=== PATIENT | male | born 1940 | race Two or more races ===

== ENCOUNTER 2023-08-03 21:14 | Emergency (ER) | payer OTHER ==
[~2023-08-03] VITALS: Ht 162.6 cm; Wt 74.8 kg
[2023-08-03 21:46] VITALS: BP 152/61; RESP 16; TEMP 97.6; O2SAT 95
[2023-08-03 21:59] VITALS: PULSE 60
[2023-08-04] MEDS: ACETAMINOPHEN 325 MG TAB PO ONE (03:30)
[2023-08-04] MEDS: NEOMYCIN-BACITRACIN-POLYM UNITDOSE PKG TOP OINT TOP ONE (03:30)
[2023-08-04] MEDS: TETANUS-DIPTH-ACEL PERTUSSIS 0.5ML SYR Tdap IM ONE (03:30)
[2023-08-04] MEDS ORDERED: MUPI2OIN2 EX (03:31)
[2023-08-04] MEDS ORDERED: CEPH500C PO (03:31)
== END 2023-08-04 04:05 | disposition home or self-care (01) ==
LOC: ER 21:14
DX: S01.01XA Laceration without foreign body of scalp, initial encounter (principal); Z79.899 Other long term (current) drug therapy; W18.39XA Other fall on same level, initial encounter; Y93.89 Activity, other specified; Y92.89 Other specified places as the place of occurrence of the external cause; Y99.8 Other external cause status
CPT/HCPCS: 12002; 70450; 93005

== ENCOUNTER 2024-02-06 11:03 | Emergency (ER) | payer OTHER ==
[~2024-02-06] VITALS: Ht 165.1 cm; Wt 76.0 kg
[~2024-02-06 11:03] MED LIST: CEPH500C PO; MUPI2OIN2 EX
--- NOTE | 2024-02-06 11:16 | ED.PDOC ---
SOB-HPI HPI Comments 83Y M with PMHx DM, HTN, COPD, and CAD s/p stenting presents to ED via EMS for chief complaint cough x5days. Pt states he is producing dark colored phlegm when coughing. Pt denies chest pain and edema. Chief Complaint: Shortness of Breath Time Seen by MD: 11:05 Reviewed notes: Nurses Notes, F[employer] Notes, Medications, Allergies Information Source: Patient, Emergency Med Personnel Mode of Arrival: EMS Brought in by: EMS Severity: Mild Timing: Days Duration: Since onset Context: At Rest PE Risk Factors: None History of: COPD Prehospital treatment: None Modifying Factors: Nothing Associated Signs and Symptoms: Cough If cough with SOB: Productive Past Medical History PAST MEDICAL HISTORY: CAD, COPD, DM, HTN, Denies Surgical History: PTCA Family History Family History: Unknown Social History Smoker: Non-Smoker, Quit Greater Than 1 Year Alcohol: Denies ETOH Use Drugs: Denies Drug Use Lives In: Home Constitutional: denies: chills, diaphoresis, fatigue, fever, malaise, sweats, weakness, others EENTM: denies: blurred vision, double vision, ear bleeding, ear discharge, ear drainage, ear pain, ear ringing, eye pain, eye redness, hearing loss, mouth pain, mouth swelling, nasal discharge, nose bleeding, nose congestion, nose pain, photophobia, tearing, throat pain, throat swelling, voice changes, others Respiratory: reports: cough; denies: hemoptysis, orthopnea, SOB at rest, shortness of breath, SOB with excertion, stridor, wheezing, others Cardiovascular: denies: chest pain, dizzy spells, diaphoresis, Dyspnea on exertion, edema, irregular heart beat, left arm pain, lightheadedness, palpitations, PND, syncope, others Gastrointestinal: denies: abdomen distended, abdominal pain, blood streaked bowels, constipated, diarrhea, dysphagia, difficulty swallowing, hematemesis, melena, nausea, poor appetite, poor fluid intake, rectal bleeding, rectal pain, vomiting, others Genitourinary: denies: burning, dysuria, flank pain, frequency, hematuria, incontinence, penile discharge, penile sore, pain, testicle pain, testicle swelling, urgency, others Neurological: denies: dizziness, fainting, headache, left sided numbness, left sided weakness, numbness, paresthesia, pre-existing deficit, right sided numbness, right sided weakness, seizure, speech problems, tingling, tremors, weakness, others Musculoskeletal: denies: back pain, gout, joint pain, joint swelling, muscle pain, muscle stiffness, neck pain, others Integumetry: denies: bruises, change in color, change in hair/nails, dryness, laceration, lesions, lumps, rash, wounds, others Allergic/Immunocompromised: denies: Difficulty Healing, Frequent Infections, Hives, Itching, others Hematologic/Lymphatic: denies: anemia, blood clots, easy bleeding, easy bruising, swollen glands, others Endocrine: denies: excessive hunger, excessive sweating, excessive thirst, excessive urination, flushing, intolerance to cold, intolerance to heat, unexplained weight gain, unexplained weight loss, others Psychiatric: denies: anxiety, bipolar disorder, depression, hopeless, panic disorder, schizophrenia, sleepless, suicidal, others All Other Systems: Reviewed and Negative Physical Exam General Appearance: Moderate Distress, Normal HEENT: Normal ENT Inspection, Pharynx Normal, TMs Normal Neck: Full Range of Motion, Non-Tender, Normal, Normal Inspection Respiratory: Chest Non-Tender, No Accessory Muscle Use, No Respiratory Distress, Other (Coarse breath sounds) Cardiovascular: No Edema, No JVD, No Murmur, No Gallop, Normal Peripheral Pulses, Regular Rate/Rhythm Breast Exam: Deferred Gastrointestinal: No Organomegaly, Non Tender, No Pulsatile Mass, Normal Bowel Sounds, Soft Genitalia: Deferred Pelvic: Deferred Rectal: Deferred Extremities: No calf tenderness, Normal capillary refill, Normal inspection, Normal range of motion, Non-tender, No pedal edema Musculoskeletal : Apperance: Normal Neurologic: Alert, caddy II-XII nml as Tested, No Motor Deficits, Normal Affect, Normal Mood, No Sensory Deficits Cerebellar Function: NOT DONE Reflexes: NOT DONE Skin: Dry, Normal Color, Warm Peripheral Pulses: 3+ Radial (R), 3+ Radial (L) Lymphatic: No Adenopathy Was a procedure done? Was a procedure done?: No Differential Dx Differential Diagnosis: Anxiety, Asthma, Bronchitis, COPD, Pneumonia, URI X-Ray, Labs, Meds, VS Vital Signs Date Time Temp Pulse Resp B/P (MAP) Pulse Ox O2 Delivery O2 Flow Rate FiO2 02/06/24 13:45 93 Nasal Cannula* 1 02/06/24 13:43 82 24 132/68 (89) 93 02/06/24 13:43 82 24 93 Nasal Cannula* 1 02/06/24 11:15 99.4 90 20 136/67 (90) 92 Lab Test 02/06/24 11:24 Range/Units White Blood Count 10.6 4.4-10.8 10^3/uL Red Blood Count 4.59 4.5-5.90 10^6/uL Hemoglobin 14.6 13.5-17.5 g/dL Hematocrit 41.7 41.0-53.0 % Mean Corpuscular Volume 90.7 80.0-100.0 fL Mean Corpuscular Hemoglobin 31.8 28.0-32.0 pg Mean Corpuscular Hemoglobin Concent 35.0 32.0-36.0 g/dL Red Cell Distribution Width 14.5 H 11.8-14.3 % Platelet Count 133 L 140-450 10^3/uL Mean Platelet Volume 8.6 6.9-10.8 fL Neutrophils (%) (Auto) 79.4 37.0-80.0 % Lymphocytes (%) (Auto) 7.8 L 10.0-50.0 % Monocytes (%) (Auto) 11.8 0.0-12.0 % Eosinophils (%) (Auto) 0.4 0.0-7.0 % Basophils (%) (Auto) 0.6 0.0-2.0 % Neutrophils # (Auto) 8.4 1.6-8.6 10 ^3/uL Lymphocytes # (Auto) 0.8 0.4-5.4 10 ^3/uL Monocytes # (Auto) 1.2 0-1.3 10 ^3/uL Eosinophils # (Auto) 0 0-0.8 10 ^3/uL Basophils # (Auto) 0.1 0-0.2 10 ^3/uL Nucleated Red Blood Cells 0.0 % Sodium Level 124 L 136-145 mmol/L Potassium Level 3.9 3.5-5.1 mmol/L Chloride Level 92 L 98-107 mmol/L Carbon Dioxide Level 25 20-31 mmol/L Anion Gap 7 5-15 Blood Urea Nitrogen 15 9-23 mg/dL Creatinine 1.34 H 0.700-1.30 mg/dL Glomerular Filtration Rate Calc 52 >90 mL/min BUN/Creatinine Ratio 11.2 10.0-20.0 Serum Glucose 182 H 74-106 mg/dL Calcium Level 9.2 8.7-10.4 mg/dL Troponin I High Sensitivity 10 </=54 ng/L Current Medications Medications (Trade) Dose Ordered Sig/Anabelle Route Start Time Stop Time Status Last Admin Methylprednisolone Sodium Succinate (Solu Medrol) 125 mg ONCE ONCE IV 02/06/24 11:15 02/06/24 11:16 DC 02/06/24 11:41 Sodium Chloride 1,000 ml @ 1,000 mls/hr Q1H ONCE IV 02/06/24 13:45 02/06/24 14:44 DC 02/06/24 13:45 Piperacillin Sod/ Tazobactam Sod 100 ml @ 100 mls/hr ONCE ONCE IV 02/06/24 15:30 02/06/24 16:29 02/06/24 15:47 [place] [address] Ph: [phone] DIAGNOSTIC IMAGING Diagnostic Imaging Report : [id number] Signed PATIENT: AUBREE MIRELES ACCT: [id number] UNIT: [id number] : 1940 LOC: ER ROOM / BED: / AGE / SEX: 83 / M ADM STATUS: REG ER SERVICE 1110 ORDERING PHYSICIAN: KEYSHAWN WARD MD PROCEDURE(s): CXRP - CHEST PORTABLE REASON: cough ORDER NUMBER(s): [id number], ACCESSION NUMBER(s): [id number] CHEST RADIOGRAPH Indication: cough Technique: Single frontal view of the chest was obtained Comparison: None FINDINGS: Lines and Tubes: None Lungs: No focal consolidation. Pleura: No effusion. No pneumothorax. Cardiomediastinal contours: Unremarkable Bones: No acute osseous abnormality. IMPRESSION: 1. No acute cardiopulmonary disease. ATED BY: NETO NOLAND MD DICTATED DATE/TIME: 02/06/24 1143 SIGNED BY: NETO NOLAND MD SIGNED DATE/TIME: 02/06/24 114 CC: Patient alert. Came in because of cough. He was desatting for which he is placed on oxygen. Vitals stable. Answering all questions. Chest x-ray reviewed does not show any acute changes. No leg swelling. No chest pain. No discoloration. Blood sugar slightly elevated. Placed on oxygen. Possible pneumonitis. Was given steroid. Was given Levaquin antibiotic. Spoke with [facility] physician. Explained to the patient. Continue cardiac monitoring. Continue oxygen. On re-evaluation patient doing well. Saturation on room air was more than 95%. Patient insists on going home. Explained to the patient his sodium level is low. Was given fluids for the sodium. Patient insists on going home. Does not want to be transferred. He does have COPD. [facility] physician we will make an appointment for him to see his primary care physician. Explained to the patient about the risks and benefit. He insists on going home. No leg swelling. No chest pain. No shortness a breath. He was given inhaler. He was told to drink Gatorade for his electrolytes. Understood the treatment plan. Was told to follow up with his primary care physician. He was told to come back if there is any signs of shortness a breath. Time of 1ST Reevaluation: 11:35 Reevaluation 1ST: Unchanged Time of 2ND Reevaluation: 16:03 Reevaluation 2ND: Improved Patient Education/Counseling: Diagnosis, Treatment Family Education/Counseling: No Family Present Additional Information I reviewed the following notes from patient's past medical encounters: [facility] ER 08/03/2023 dx head injury The following tests were ordered, and results were reviewed by me: CBC, BMP, Troponin, CXR Additional Information was gathered from interviewing the following independent historians: EMS I reviewed and agreed with the following test results read by other providers: CXR I discussed treatment and results with medical personnel. Departure 1 Departure Time of Disposition: 15:20 Impression: Primary Impression: Hyponatremia Additional Impressions: Pneumonitis Uncontrolled diabetes mellitus Qualified Codes: E13.65 - Other specified diabetes mellitus with hyperglycemia Disposition: HOME / SELF CARE / HOMELESS Condition: Good e-Prescriptions Albuterol Sulfate (VENTOLIN MDI) 90 Mcg Ih 90 MCG IN Q6HP PRN for 5 Days, #2 MCG Prov: KEYSHAWN WARD MD 02/06/24 Prednisone (Prednisone) 10 Mg Tab 10 MG PO DAILY for 7 Days, #7 MG Prov: KEYSHAWN WARD MD 02/06/24 Levofloxacin Hemihydrate (LEVOFLOXACIN) 500 Mg Tab 500 MG PO DAILY for 10 Days, #20 MG Prov: KEYSHAWN WARD MD 02/06/24 Discharged With: Self Critical Care Note Critical Care Time?: Yes (90 min-critical care time only) Stability Stability form required: No Heart Score Heart Score: Heart Score Response (Comments) Value History Slightly Suspicious 0 EKG Normal 0 Age >65 2 Risk Factors >3 or Hx ASHD 2 Troponin Normal limit 0 Total 4 I personally scribed for KEYSHAWN WARD MD ([email or web address]) on 02/06/24 at 11:16. Electronically submitted by Lovely Hayes [email or web address]). I personally scribed for KEYSHAWN WARD MD ([email or web address]) on 02/06/24 at 11:30. Electronically submitted by Lovely Hayes [email or web address]). I personally scribed for KEYSHAWN WARD MD ([email or web address]) on 02/06/24 at 12:03. Electronically submitted by Lovely Hayes [email or web address]). KEYSHAWN WARD MD Feb 06, 2024 11:16
[2024-02-06] MEDS: methylPREDNISolone SOD SUCC 125 MG/2 ML VL IV ONE (11:41)
--- NOTE | 2024-02-06 11:46 | DVH ---
CHEST RADIOGRAPH Indication: cough Technique: Single frontal view of the chest was obtained Comparison: None FINDINGS: Lines and Tubes: None Lungs: No focal consolidation. Pleura: No effusion. No pneumothorax. Cardiomediastinal contours: Unremarkable Bones: No acute osseous abnormality. IMPRESSION: 1. No acute cardiopulmonary disease.
[2024-02-06 11:50] LABS: Basophils # (auto) 0.1 10 ^3/uL (0-0.2); Basophils % (auto) 0.6 % (0.0-2.0); Eosinophils # (auto) 0 10 ^3/uL (0-0.8); Eosinophils % (auto) 0.4 % (0.0-7.0); Hematocrit 41.7 % (41.0-53.0); Hemoglobin 14.6 g/dL (13.5-17.5); Lymphocytes # (auto) 0.8 10 ^3/uL (0.4-5.4); Lymphocytes % (auto) 7.8 % (10.0-50.0); Mean Corpuscular Hemoglobin 31.8 pg (28.0-32.0); Mean Corpuscular Volume 90.7 fL (80.0-100.0); Monocytes # (auto) 1.2 10 ^3/uL (0-1.3); Monocytes % (auto) 11.8 % (0.0-12.0); Neutrophils # (auto) 8.4 10 ^3/uL (1.6-8.6); Neutrophils % (auto) 79.4 % (37.0-80.0); Platelet Count (auto) 133 10^3/uL (140-450); Red Blood Cells 4.59 10^6/uL (4.5-5.90); Red Cell Distribution Width 14.5 % (11.8-14.3); White Blood Cell 10.6 10^3/uL (4.4-10.8)
[2024-02-06 11:55] LABS: Potassium 3.9 mmol/L (3.5-5.1)
[2024-02-06 11:56] LABS: Anion Gap 7 (5-15); Carbon Dioxide 25 mmol/L (20-31)
[2024-02-06 11:57] LABS: Calcium 9.2 mg/dL (8.7-10.4)
[2024-02-06 12:01] LABS: BUN/Creatinine Ratio 11.2 (10.0-20.0); Blood Urea Nitrogen 15 mg/dL (9-23)
[2024-02-06 12:07] LABS: Chloride 92 mmol/L (98-107); Glucose 182 mg/dL (74-106); Sodium 124 mmol/L (136-145)
[2024-02-06 13:43] VITALS: BP 132/68; PULSE 82; RESP 24; O2SAT 93
[2024-02-06 13:45] VITALS: O2SAT 93
[2024-02-06] MEDS: SODIUM CHLORIDE 0.9% 1,000 ML IV ONE (13:45)
[2024-02-06] MEDS: PIPERACILLIN-TAZOB 3.375GM 100 ML IV ONE (15:47)
[2024-02-06 16:00] VITALS: PULSE 85
[2024-02-06] MEDS ORDERED: LEVO500T91 PO (16:00)
[2024-02-06] MEDS ORDERED: PRED10TA PO (16:05)
[2024-02-06] MEDS ORDERED: ALBUAER3 IN (16:12)
== END 2024-02-06 18:11 | disposition home or self-care (01) ==
LOC: EDBD 11:03 → ER 11:03
DX: E87.1 Hypo-osmolality and hyponatremia (principal); E11.65 Type 2 diabetes mellitus with hyperglycemia; J98.4 Other disorders of lung; I10 Essential (primary) hypertension; J44.9 Chronic obstructive pulmonary disease, unspecified; Z95.5 Presence of coronary angioplasty implant and graft
CPT/HCPCS: 36415; 71045; 80048; 84484; 85025; 96361; 96365; 96375; 99284; J2543; J2919; J7030